=== PATIENT | female | born 1955 | race Caucasian/White ===

== ENCOUNTER 2017-05-16 16:50 | Inpatient (IN) | payer MEDICARE, MEDICAID ==
[~2017-05-16] VITALS: Ht 166.4 cm; Wt 61.4 kg
[~2017-05-16 16:50] MED LIST: ALBU8.5H8 IH; ALPR0.5T10 PO; AMLO5TAB16 PO; DIPH50TA15 PO; ESCI20TA38 PO; ESTR2TAB6 PO; FLUO20CA22 PO; HYDR25TA4 PO; LABE300T PO; LEVO125T8 PO; LISI-600 PO; LOVA40TA2 PO; OMEP20CA10 PO
[2017-05-16 22:04] VITALS: BP 156/83
[2017-05-17] MEDS ORDERED: magnesium hydroxide 30ml (MOM) UD suspension PO PRN (00:45)
[2017-05-17] MEDS ORDERED: acetaminophen 325mg tablet PO PRN (00:45)
[2017-05-17] MEDS: acetaminophen 325mg tablet PO PRN ×2 (01:00→21:14)
[2017-05-17] MEDS: levoTHYROXINE 25mcg tablet PO SCH (07:33)
[2017-05-17 08:00] VITALS: BP 148/70
[2017-05-17] MEDS ORDERED: ciprofloxacin 500MG tablet PO SCH (08:00)
[2017-05-17] MEDS ORDERED: nicotine 21mg patch - 24 hr TD ONE (09:00)
[2017-05-17] MEDS ORDERED: pneumococcal 23-VAL P-sac vacc 25 mcg/0.5ml vial IMVAC ONE (10:00)
[2017-05-17] MEDS ORDERED: FLU VACC QS2017-18 36MOS UP/PF 60 MCG/0.5 ML SYRINGE IMVAC ONE (10:00)
[2017-05-17] MEDS: mag hydrox/Alum hydrox/simeth 30ml oral suspension PO PRN ×2 (14:33→22:49)
[2017-05-17] MEDS: lactobacillus rhamnosus 10,000 MMU CELLS/CAPSULE PO SCH (17:14)
[2017-05-17] MEDS ORDERED: traZODone 50mg tablet PO PRN (18:30)
[2017-05-17 19:00] VITALS: BP 176/73
[2017-05-17] MEDS: naproxen sodium 220mg tablet PO PRN (19:14)
[2017-05-17] MEDS: estrogens, conjug. vaginal cream 45gm tube VG SCH (21:00)
[2017-05-18 02:40] VITALS: BP 100/50
[2017-05-18] MEDS: naproxen sodium 220mg tablet PO PRN ×4 (03:48→20:24)
[2017-05-18 07:24] VITALS: BP 132/66
[2017-05-18] MEDS: lactobacillus rhamnosus 10,000 MMU CELLS/CAPSULE PO SCH ×2 (07:55→17:48)
[2017-05-18] MEDS: levoTHYROXINE 25mcg tablet PO SCH (07:55)
[2017-05-18] MEDS: duloxetine 30mg CAPSULE.DR PO SCH (07:56)
[2017-05-18] MEDS: pantoprazole 40mg Tablet.DR PO SCH (07:56)
[2017-05-18] MEDS: traZODone 50mg tablet PO SCH ×2 (08:15→20:23)
[2017-05-18] MEDS: nicotine 21mg patch - 24 hr TD SCH (09:00)
[2017-05-18] MEDS: acetaminophen 325mg tablet PO PRN (16:17)
[2017-05-18] MEDS: LORazepam 0.5 MG tablet PO PRN (16:17)
[2017-05-18 19:00] VITALS: BP 134/64
[2017-05-18] MEDS: estrogens, conjug. vaginal cream 45gm tube VG SCH ×2 (20:24→21:00)
[2017-05-19] MEDS: LORazepam 0.5 MG tablet PO PRN (02:14)
[2017-05-19] MEDS: acetaminophen 325mg tablet PO PRN ×3 (02:14→20:42)
[2017-05-19] MEDS: pantoprazole 40mg Tablet.DR PO SCH (07:48)
[2017-05-19] MEDS: levoTHYROXINE 25mcg tablet PO SCH (07:48)
[2017-05-19] MEDS: lactobacillus rhamnosus 10,000 MMU CELLS/CAPSULE PO SCH ×2 (07:48→17:54)
[2017-05-19] MEDS: duloxetine 30mg CAPSULE.DR PO SCH (07:49)
[2017-05-19] MEDS: nicotine 21mg patch - 24 hr TD SCH (07:49)
[2017-05-19 08:00] VITALS: BP 178/88
[2017-05-19] MEDS ORDERED: atorvastatin 10mg tablet PO SCH (08:00)
[2017-05-19] MEDS: naproxen sodium 220mg tablet PO PRN (13:10)
[2017-05-19 19:13] VITALS: BP 168/86
[2017-05-19] MEDS: traZODone 50mg tablet PO SCH (20:30)
[2017-05-19] MEDS: lisinopril 20mg tablet PO SCH (20:30)
[2017-05-19] MEDS: oxybutynin 5mg tablet PO SCH (20:30)
[2017-05-19] MEDS: labetalol 100mg tablet PO SCH (20:31)
[2017-05-19] MEDS: estrogens, conjug. vaginal cream 45gm tube VG SCH (20:33)
[2017-05-20] MEDS: naproxen sodium 220mg tablet PO PRN ×2 (01:17→11:22)
[2017-05-20 07:18] LABS: CHOL/HDL RATIO 3.7 (0.00-4.99); CHOLESTEROL 163 MG/DL (0-200); HDL CHOLESTEROL 44 MG/DL (35-60); LDL CHOLESTEROL 111 MG/DL (50-100); TRIGLYCERIDES 132 MG/DL (20-135)
[2017-05-20] MEDS: pantoprazole 40mg Tablet.DR PO SCH (07:25)
[2017-05-20] MEDS: levoTHYROXINE 25mcg tablet PO SCH (07:25)
[2017-05-20] MEDS: lactobacillus rhamnosus 10,000 MMU CELLS/CAPSULE PO SCH ×2 (07:25→17:55)
[2017-05-20 08:00] VITALS: BP 104/52
[2017-05-20] MEDS: atorvastatin 10mg tablet PO SCH (09:01)
[2017-05-20] MEDS: duloxetine 30mg CAPSULE.DR PO SCH (09:01)
[2017-05-20] MEDS: lisinopril 20mg tablet PO SCH ×2 (09:01→20:30)
[2017-05-20] MEDS: nicotine 21mg patch - 24 hr TD SCH (09:02)
[2017-05-20] MEDS: labetalol 100mg tablet PO SCH ×2 (11:22→20:30)
[2017-05-20 19:50] VITALS: BP 132/64
[2017-05-20] MEDS: oxybutynin 5mg tablet PO SCH (20:29)
[2017-05-20] MEDS: traZODone 50mg tablet PO SCH (20:30)
[2017-05-20] MEDS: estrogens, conjug. vaginal cream 45gm tube VG SCH (20:33)
[2017-05-20] MEDS ORDERED: gabapentin 100mg capsule PO SCH (21:00)
[2017-05-21] MEDS: LORazepam 0.5 MG tablet PO PRN (02:59)
[2017-05-21] MEDS: acetaminophen 325mg tablet PO PRN ×2 (03:01→14:37)
[2017-05-21] MEDS: lisinopril 20mg tablet PO SCH ×2 (07:25→20:43)
[2017-05-21] MEDS: labetalol 100mg tablet PO SCH ×2 (07:26→20:43)
[2017-05-21] MEDS: levoTHYROXINE 25mcg tablet PO SCH (07:30)
[2017-05-21] MEDS: naproxen sodium 220mg tablet PO PRN (07:31)
[2017-05-21] MEDS: pantoprazole 40mg Tablet.DR PO SCH (07:31)
[2017-05-21] MEDS: nicotine 21mg patch - 24 hr TD SCH (07:31)
[2017-05-21] MEDS: atorvastatin 10mg tablet PO SCH (07:55)
[2017-05-21] MEDS: lactobacillus rhamnosus 10,000 MMU CELLS/CAPSULE PO SCH ×2 (07:55→17:58)
[2017-05-21] MEDS: duloxetine 30mg CAPSULE.DR PO SCH (07:55)
[2017-05-21 08:00] VITALS: BP 95/54
[2017-05-21 20:00] VITALS: BP 140/66
[2017-05-21] MEDS: oxybutynin 5mg tablet PO SCH (20:42)
[2017-05-21] MEDS: gabapentin 400mg capsule PO SCH (20:42)
[2017-05-21] MEDS: traZODone 50mg tablet PO SCH (20:44)
[2017-05-21] MEDS: estrogens, conjug. vaginal cream 45gm tube VG SCH (20:48)
[2017-05-21] MEDS: mag hydrox/Alum hydrox/simeth 30ml oral suspension PO PRN (22:54)
[2017-05-22] MEDS: LORazepam 0.5 MG tablet PO PRN (03:09)
[2017-05-22] MEDS: levoTHYROXINE 25mcg tablet PO SCH (07:26)
[2017-05-22] MEDS: pantoprazole 40mg Tablet.DR PO SCH (07:26)
[2017-05-22] MEDS: lactobacillus rhamnosus 10,000 MMU CELLS/CAPSULE PO SCH ×2 (07:26→17:23)
[2017-05-22] MEDS: nicotine 21mg patch - 24 hr TD SCH (07:30)
[2017-05-22 08:00] VITALS: BP 130/57
[2017-05-22] MEDS: duloxetine 30mg CAPSULE.DR PO SCH (08:33)
[2017-05-22] MEDS: atorvastatin 10mg tablet PO SCH (08:34)
[2017-05-22] MEDS: lisinopril 20mg tablet PO SCH ×2 (08:35→20:39)
[2017-05-22] MEDS: labetalol 100mg tablet PO SCH ×2 (09:37→20:40)
[2017-05-22] MEDS: naproxen sodium 220mg tablet PO PRN (14:21)
[2017-05-22] MEDS: acetaminophen 325mg tablet PO PRN ×2 (14:21→20:48)
[2017-05-22 20:00] VITALS: BP 112/49
[2017-05-22] MEDS: gabapentin 400mg capsule PO SCH (20:39)
[2017-05-22] MEDS: traZODone 50mg tablet PO SCH (20:39)
[2017-05-22] MEDS: oxybutynin 5mg tablet PO SCH (20:39)
[2017-05-22] MEDS: estrogens, conjug. vaginal cream 45gm tube VG SCH (20:43)
[2017-05-23] MEDS: levoTHYROXINE 25mcg tablet PO SCH (07:37)
[2017-05-23] MEDS: pantoprazole 40mg Tablet.DR PO SCH (07:37)
[2017-05-23] MEDS: lactobacillus rhamnosus 10,000 MMU CELLS/CAPSULE PO SCH ×2 (07:38→16:53)
[2017-05-23] MEDS: nicotine 21mg patch - 24 hr TD SCH (07:39)
[2017-05-23 07:55] VITALS: BP 103/43
[2017-05-23] MEDS: lisinopril 20mg tablet PO SCH ×2 (08:34→20:04)
[2017-05-23] MEDS: duloxetine 30mg CAPSULE.DR PO SCH (08:34)
[2017-05-23] MEDS: atorvastatin 10mg tablet PO SCH (08:35)
[2017-05-23] MEDS: labetalol 100mg tablet PO SCH ×2 (08:48→20:04)
[2017-05-23] MEDS: acetaminophen 325mg tablet PO PRN ×2 (11:52→19:31)
[2017-05-23] MEDS: naproxen sodium 220mg tablet PO PRN (16:53)
[2017-05-23 19:52] VITALS: BP 101/41
[2017-05-23 19:57] VITALS: BP 101/41
[2017-05-23] MEDS: oxybutynin 5mg tablet PO SCH (20:04)
[2017-05-23] MEDS: traZODone 50mg tablet PO SCH (20:04)
[2017-05-23] MEDS: gabapentin 400mg capsule PO SCH (20:04)
[2017-05-23] MEDS: estrogens, conjug. vaginal cream 45gm tube VG SCH (20:06)
[2017-05-24] MEDS: naproxen sodium 220mg tablet PO PRN ×2 (03:41→15:58)
[2017-05-24] MEDS: levoTHYROXINE 25mcg tablet PO SCH (07:18)
[2017-05-24] MEDS: lactobacillus rhamnosus 10,000 MMU CELLS/CAPSULE PO SCH ×2 (07:19→18:10)
[2017-05-24 08:00] VITALS: BP 108/54
[2017-05-24] MEDS: lisinopril 20mg tablet PO SCH ×2 (08:00→20:49)
[2017-05-24] MEDS: atorvastatin 10mg tablet PO SCH (08:00)
[2017-05-24] MEDS: pantoprazole 40mg Tablet.DR PO SCH (08:00)
[2017-05-24] MEDS: duloxetine 30mg CAPSULE.DR PO SCH (08:01)
[2017-05-24] MEDS: nicotine 21mg patch - 24 hr TD SCH (08:02)
[2017-05-24] MEDS: acetaminophen 325mg tablet PO PRN ×2 (12:25→20:46)
[2017-05-24 20:00] VITALS: BP 116/75
[2017-05-24] MEDS: oxybutynin 5mg tablet PO SCH (20:45)
[2017-05-24] MEDS: labetalol 100mg tablet PO SCH (20:48)
[2017-05-24] MEDS: estrogens, conjug. vaginal cream 45gm tube VG SCH (20:49)
[2017-05-24] MEDS: gabapentin 400mg capsule PO SCH (20:49)
[2017-05-24] MEDS: traZODone 50mg tablet PO SCH (20:49)
[2017-05-25] MEDS: naproxen sodium 220mg tablet PO PRN ×2 (02:24→15:43)
[2017-05-25] MEDS ORDERED: LACTOBACILLUS RHAMNOSUS GG 15 billion unit sprinkle caps PO SCH (07:30)
[2017-05-25] MEDS: levoTHYROXINE 25mcg tablet PO SCH (07:52)
[2017-05-25] MEDS: pantoprazole 40mg Tablet.DR PO SCH (07:53)
[2017-05-25 08:00] VITALS: BP 125/54
[2017-05-25] MEDS: labetalol 100mg tablet PO SCH (08:33)
[2017-05-25] MEDS: duloxetine 30mg CAPSULE.DR PO SCH (08:33)
[2017-05-25] MEDS: atorvastatin 10mg tablet PO SCH (08:33)
[2017-05-25] MEDS: lisinopril 20mg tablet PO SCH (08:33)
[2017-05-25] MEDS: nicotine 21mg patch - 24 hr TD SCH (08:35)
[2017-05-25] MEDS: acetaminophen 325mg tablet PO PRN (12:10)
[2017-05-25] MEDS ORDERED: ATOR10TA PO (14:27)
[2017-05-25] MEDS ORDERED: NICO-687 TD (14:27)
[2017-05-25] MEDS ORDERED: LABE300T PO (14:27)
[2017-05-25] MEDS ORDERED: OXYB5TAB11 PO (14:27)
[2017-05-25] MEDS ORDERED: PANT40TA4 PO (14:27)
[2017-05-25] MEDS ORDERED: LEVO25TA7 PO (14:27)
[2017-05-25] MEDS ORDERED: LISI-600 PO (14:27)
[2017-05-25] MEDS ORDERED: PREVCR VG (14:27)
[2017-05-25] MEDS ORDERED: TRAZ-143 PO (14:27)
[2017-05-25] MEDS ORDERED: DULO60CA64 PO (14:27)
[2017-05-25] MEDS ORDERED: GABA-534 PO (14:27)
== END 2017-05-25 16:56 | disposition home or self-care (01) | DRG 885 ==
LOC: ADULT MH 16:50
PROVIDERS: ADMIT Psychiatry & Neurology Psychiatry; ATTEND Psychiatry & Neurology Psychiatry
DX: F33.9 Major depressive disorder, recurrent, unspecified (principal); F29 Unspecified psychosis not due to a substance or known physiological condition; E03.9 Hypothyroidism, unspecified; N39.0 Urinary tract infection, site not specified; F41.9 Anxiety disorder, unspecified; N32.81 Overactive bladder; F17.210 Nicotine dependence, cigarettes, uncomplicated; Z90.710 Acquired absence of both cervix and uterus; Z99.3 Dependence on wheelchair; Z86.73 Personal history of transient ischemic attack (TIA), and cerebral infarction without residual deficits; Z82.49 Family history of ischemic heart disease and other diseases of the circulatory system
CPT/HCPCS: 36415; 80061; 83036; 87070; 87088; 90732; 97110; 97116; 97161; 97530; Q2037

== ENCOUNTER 2017-08-06 17:37 | Emergency (ER) | payer MEDICARE, MEDICAID ==
[~2017-08-06] VITALS: Ht 167.6 cm; Wt 67.7 kg
[~2017-08-06 17:37] MED LIST changes: -ALBU8.5H8 IH; -ALPR0.5T10 PO; -AMLO5TAB16 PO; +ATOR10TA87 PO; -DIPH50TA15 PO; +DULO-31 PO; -ESCI20TA38 PO; -ESTR2TAB6 PO; -FLUO20CA22 PO; +GABA-534 PO; -HYDR25TA4 PO; -LEVO125T8 PO; +LEVO25TA2 PO; -LOVA40TA2 PO; -OMEP20CA10 PO; +OXYB5TAB11 PO; +PANT-47 PO; +TRAZ-146 PO
[2017-08-06 19:02] LABS: ALANINE AMINOTRANSFERASE 32 U/L (12-78); ALBUMIN 3.4 G/DL (3.4-5.0); ALKALINE PHOSPHATASE 117 IU/L (46-116); ANION GAP 7 (8-16); ASPARTATE AMINO TRANSFERASE 18 U/L (10-37); BILIRUBIN,TOTAL 0.4 MG/DL (0.1-1.0); BLOOD UREA NITROGEN 19 MG/DL (7-18); BUN/CREATININE RATIO 22.6 (6.6-38.0); CALCIUM 8.9 MG/DL (8.5-10.1); CHLORIDE 102 MMOL/L (99-107); CREATININE 0.84 MG/DL (0.40-0.90); GLUCOSE 111 MG/DL (70-104); MAGNESIUM 1.9 MG/DL (1.5-2.4); POTASSIUM 4.3 MMOL/L (3.5-5.1); SODIUM 139 MMOL/L (135-145); TOTAL PROTEIN 6.7 G/DL (6.4-8.2); eGFR 69 ML/MIN
[2017-08-06 19:04] LABS: HEMOGLOBIN 12.1 g/dl (12.0-16.0); MEAN CORPUSCULAR HEMOGLOBIN 30.7 PG (27.0-31.0); MEAN CORPUSCULAR HGB CONC 33.5 % (33.0-36.5); MEAN CORPUSCULAR VOLUME 91.6 FL (78-98); MEAN PLATELET VOLUME 7.2 FL (7.4-10.4); PLATELET COUNT 371 X10'3 (140-440); RED BLOOD COUNT 3.93 X10'6 (4.20-5.60); RED CELL DISTRIBUTION WIDTH 14.3 % (11.5-14.5); WHITE BLOOD COUNT 9.3 X10'3 (4.5-11.0)
[2017-08-06 19:42] LABS: TOTAL CELLS COUNTED 100
[2017-08-06 19:43] LABS: PLATELET ESTIMATE NORMAL
[2017-08-06] MEDS ORDERED: LIDOcaine 1.5% w/epinephrine 1:200,000 5ml ampul IJ ONE (19:45)
[2017-08-06 20:36] VITALS: BP 162/93
== END 2017-08-06 21:25 | disposition home or self-care (01) ==
LOC: ER 17:37
DX: S09.90XA Unspecified injury of head, initial encounter (principal); S01.01XA Laceration without foreign body of scalp, initial encounter; Z86.73 Personal history of transient ischemic attack (TIA), and cerebral infarction without residual deficits; I10 Essential (primary) hypertension; E03.9 Hypothyroidism, unspecified; Z90.710 Acquired absence of both cervix and uterus; Z98.890 Other specified postprocedural states; F12.10 Cannabis abuse, uncomplicated; Z79.899 Other long term (current) drug therapy
CPT/HCPCS: 12002; 36415; 70450; 80053; 83735; 85025; 93005; 99285; A6449; J3490